=== PATIENT | female | born 1985 | race Caucasian/White ===

== ENCOUNTER 2020-07-28 11:24 | Outpatient (REF) | payer MEDICAID, SELFPAY ==
--- NOTE | 2020-07-28 11:35 | US_ITS ---
EXAMINATION: PELVIC ULTRASOUND CLINICAL INFORMATION: Dysmenorrhea COMPARISON: Previous pelvic ultrasound November [address] of the abdomen and pelvis most recent December 2013 TECHNIQUE: Transabdominal and transvaginal pelvic ultrasound was performed. Transvaginal exam was performed for better visualization of the uterus and ovaries. FINDINGS: The uterus is anteverted and measures 10.6 x 4.1 x 5.1 cm in dimension. No focal uterine lesion is seen. Endometrial thickness is normal estimated at 0.3 cm. There are nabothian cysts in the cervix. The ovaries are normal-appearing. The right ovary measures 2.3 x 1.9 x 1.6 cm and the left ovary measures 2.9 x 1.6 x 1.8 cm. There is no fluid in the pelvis. US/US transvaginal IMPRESSION: Normal pelvic ultrasound.
--- NOTE | 2020-07-28 11:35 | US_ITS ---
EXAMINATION: PELVIC ULTRASOUND CLINICAL INFORMATION: Dysmenorrhea COMPARISON: Previous pelvic ultrasound November [address] of the abdomen and pelvis most recent December 2013 TECHNIQUE: Transabdominal and transvaginal pelvic ultrasound was performed. Transvaginal exam was performed for better visualization of the uterus and ovaries. FINDINGS: The uterus is anteverted and measures 10.6 x 4.1 x 5.1 cm in dimension. No focal uterine lesion is seen. Endometrial thickness is normal estimated at 0.3 cm. There are nabothian cysts in the cervix. The ovaries are normal-appearing. The right ovary measures 2.3 x 1.9 x 1.6 cm and the left ovary measures 2.9 x 1.6 x 1.8 cm. There is no fluid in the pelvis. US/US pelvic complete IMPRESSION: Normal pelvic ultrasound.
== END 2020-07-28 11:25 | disposition home or self-care (01) ==
LOC: HO.US 11:24
PROVIDERS: Visit Provider Advanced Practice Midwife
DX: N94.6 Dysmenorrhea, unspecified (principal)
CPT/HCPCS: 76830; 76856

== ENCOUNTER 2021-06-07 09:14 | Outpatient (REF) | payer MEDICAID, SELFPAY | END 2021-06-07 09:15 | disposition home or self-care (01) | LOC: HO.LAB 09:14 | PROVIDERS: Visit Provider Internal Medicine | DX: Z20.822 Contact with and (suspected) exposure to COVID-19 (principal) | CPT/HCPCS: C9803; U0003; U0005 ==

== ENCOUNTER 2022-10-31 10:40 | Outpatient (REF) | payer MEDICAID, SELFPAY ==
--- NOTE | ~2022-10-31 | MM_ITS ---
EXAMINATION: MM DIAGNOSTIC DIGITAL BREAST TOMOSYNTHESIS, BILATERAL US DIAGNOSTIC ULTRASOUND BREAST, LEFT CLINICAL INFORMATION: 36-year-old with tender left nipple areolar region for approximately one month. Also pea-sized palpable concern posterior inferior left breast. No prior breast imaging. Family history breast cancer, maternal grandmother. TC score 13%. COMPARISON: None (current study represents initial baseline exam). TECHNIQUE: Digital breast tomosynthesis is performed in both the craniocaudal and mediolateral oblique views along with computer-aided detection (CAD). Synthesized 2D images are generated from the tomosynthesis. Ultrasound left breast is targeted to both areas of clinical concern using grayscale imaging and color Doppler without and with harmonics. FINDINGS: There are scattered areas of fibroglandular density (ACR BI-RADS breast composition Category b). There are no significant masses, abnormal calcifications, or other abnormalities. There is small subcentimeter smooth nodule anterior 3:00 left breast. No skin thickening or coarsening of the Sriram's ligaments. The axilla are unremarkable. Ultrasound left breast in area of palpable concern shows no cystic or solid mass or architectural abnormality. No focal duct ectasia. Chest wall soft tissues unremarkable. No skin thickening or edema tracking in soft tissue planes. Ultrasound left breast in area of nipple areolar pain demonstrates no skin thickening or edema tracking in soft tissue planes. No duct ectasia or solid mass or architectural abnormality. No hyperemia. There is incidental small benign clustered microcysts 3:00 periareolar region corresponding to the mammography measuring 5 mm Results are discussed with the patient at time of visit. MM/MM tomosynthesis diagnostic BI IMPRESSION: -No mammographic evidence of malignancy or inflammatory changes. -Incidental small benign clustered microcysts 3:00 anterior left breast. -No mammographic or ultrasound correlate for palpable concern. ASSESSMENT: BI-RADS 2: Benign RECOMMENDATION: 1. Patient should be managed based on the clinical impression. If there is still clinically palpable concern, further evaluation may be considered with surgical consult. Decision to proceed with biopsy should be based on clinical grounds and degree of clinical concern. 2. Otherwise, routine annual screening mammography, beginning age 40, or earlier as clinical risk factors warrant. This patient's information was entered into a reminder system with a target due date for their next mammogram.
== END 2022-10-31 10:41 | disposition home or self-care (01) ==
LOC: HO.MAMMO 10:40
PROVIDERS: PCP Internal Medicine; Visit Provider General Practice
DX: N63.25 Unspecified lump in the left breast, overlapping quadrants (principal)
CPT/HCPCS: 76642; 77062; 77066